=== PATIENT | female | born 2000 | race Caucasian/White ===

== ENCOUNTER → 2021-02-16 10:56 | Outpatient (BNVA) | payer MEDICAID, SELFPAY | PROVIDERS: Family Provider Family Medicine; PCP Family Medicine; Visit Provider Nurse Practitioner Family | DX: Z34.90 Encounter for supervision of normal pregnancy, unspecified, unspecified trimester (principal); R82.90 Unspecified abnormal findings in urine | CPT/HCPCS: 81000; 87086 ==

== ENCOUNTER → 2022-01-30 14:27 | Outpatient (BNVA) | payer MEDICAID, SELFPAY | PROVIDERS: Family Provider Family Medicine; PCP Nurse Practitioner Family; Visit Provider Nurse Practitioner Family | DX: R50.9 Fever, unspecified (principal) | CPT/HCPCS: 87400 ==

== ENCOUNTER → 2022-03-22 11:00 | Outpatient (BNVA) | payer MEDICAID, SELFPAY | PROVIDERS: Family Provider Family Medicine; PCP Nurse Practitioner Family; Visit Provider Nurse Practitioner Family | DX: R50.9 Fever, unspecified (principal); J02.9 Acute pharyngitis, unspecified; R05.9 Cough, unspecified; R52 Pain, unspecified; Z20.828 Contact with and (suspected) exposure to other viral communicable diseases; J45.909 Unspecified asthma, uncomplicated; J21.0 Acute bronchiolitis due to respiratory syncytial virus | CPT/HCPCS: 87400; 87420; 87426 ==

== ENCOUNTER 2022-08-11 05:14 | Emergency (ER) | payer MEDICAID, SELFPAY ==
[2022-08-11 05:20] VITALS: BP 129/88; PULSE 99; RESP 18; TEMP 36.6; O2SAT 100; BMI 29.2
[2022-08-11 05:33] VITALS: BP 129/88; PULSE 62; RESP 18; O2SAT 100
[2022-08-11 05:41] LABS: Basophils % 0.3 %; Eosinophils # 0.2 10^3/uL (0.0-0.8); Hematocrit 29.4 % (37.0-47.0); Lymphocytes # 2.5 10^3/uL (0.8-4.8); Lymphocytes % 25.3 %; Mean Corpuscular HGB Conc 27.2 g/dL (30.0-36.0); Mean Corpuscular Hemoglobin 23.5 pg (28.0-34.0); Mean Corpuscular Volume 86.5 fl (81-99); Mean Platelet Volume 9.2 fL (7.4-10.4); Monocytes # 0.5 10^3/uL (0.2-0.9); Monocytes % 4.9 %; Neutrophils # 6.54 10^3/uL (1.8-7.7); Neutrophils % 66.4 %; Nucleated Red Blood Cells % 0.2 %; Platelet Count 298 10^3/cmm (130-400); Red Cell Distribution Width 19.9 % (12.1-15.1); White Blood Count 9.9 10^3/uL (4.0-10.0)
[2022-08-11] MEDS: FUROsemide 10 mg/mL SDV 2mL 20 MG IVP (05:50)
--- NOTE | 2022-08-11 06:00 | W.ED.EXTPRO ---
HPI - Extremity Problem General: Chief complaint: Extremity Problem,Nontraumatic Stated complaint: 08/03 swelling in both legs Time Seen by Provider: 08/11/22 05:18 Source: patient Mode of arrival: ambulatory History of Present Illness: 22-year-old female presents emergency room with complaint of swelling of the lower extremities bilaterally. She is complaining of some shortness of breath as well. Previous she had preeclampsia she had no difficulty with this particular she has not had any fever sweats chills productive cough no chest pain. She still has some mild uterine cramping no complications from the . Complaint: extremity swelling Onset (ago): day(s) Location: lower extremity (Bilateral) Relieving factors: nothing Exacerbating factors: other Associated symptoms: Deny chest pain, fever(s) or rash Context: recent surgery/procedure Review of Systems Const: Denies: fever(s), chills, body aches, change in appetite, fatigue or malaise ENMT: Denies: throat pain, ear or mastoid pain, nasal discharge or nasal congestion Card: Denies: chest pain, edema, dyspnea on exertion or orthopnea Resp: Denies: dyspnea, productive cough or non-productive cough GI: Denies: abdominal pain, nausea, vomiting, hematemesis, coffee ground emesis, diarrhea, constipation, bloating, hematochezia or melena : Denies: flank pain, difficulty voiding, dysuria, urinary frequency or urinary urgency Skin/Breast: Denies: rash or pruritus PFSH ED PFSH: Social History Smoking and tobacco status: never smoked Alcohol intake: never Substance/Drug Use: never Physical Exam Const: COMMON NORMALS: no acute distress GENERAL APPEARANCE: cooperative and comfortable ORIENTATION/CONSCIOUSNESS: Yes awake, Yes oriented to person, Yes oriented to place and Yes oriented to time HENMT: COMMON NORMALS: normocephalic, atraumatic and hearing grossly normal bilaterally HEAD & SCALP: normocephalic and atraumatic Resp: COMMON NORMALS: normal respiratory effort, No retractions, No use of accessory muscles and clear to auscultation bilaterally AUSCULTATION: clear to auscultation bilaterally Cardio: COMMON NORMALS: regular rate, regular rhythm and No murmurs present (Cardio) RATE: regular rate RHYTHM: regular rhythm GI: COMMON NORMALS: Soft to palpation and No hepatosplenomegaly present AUSCULTATION: Yes normoactive bowel sounds PALPATION: Yes Soft to palpation, No Tenderness to palpation present (GI), No Guarding due to palpation present (GI) and Yes No hepatosplenomegaly present Extremity: COMMON NORMALS: normal to inspection, capillary refill normal and no calf tenderness GENERAL: Yes edema (Bilateral nonpitting) Neuro: SENSORIUM/ORIENTATION: Yes oriented to person, Yes oriented to place and Yes oriented to time Skin: COMMON NORMALS: no rashes or lesions noted GENERAL SKIN EXAM: no rashes or lesions noted Course Vital Signs: Vital signs: Vital Signs Temperature 98 F 08/11/22 05:20 Pulse Rate 62 08/11/22 05:33 Respiratory Rate 18 08/11/22 05:33 Blood Pressure 129/88 08/11/22 05:33 Pulse Oximetry 100 08/11/22 05:33 Oxygen Delivery Me thod Room Air 08/11/22 05:33 MDM - Extremity (Nontraumatic) Medical Decision Making No significant findings on exam. Laboratory test reviewed blood pressure stable she is not tachycardic or hypotensive nor is she hypoxic is no sign of DVT. Patient given Lasix in the emergency room discharged home Lasix daily for 3 days follow-up with primary care return if has further problems. Medical Records I reviewed the patient's medical records. Lab Data I reviewed the patient's lab results. 08/11/22 05:35 08/11/22 05:35 Laboratory Results WBC 9.9 10^3/uL (4.0-10.0) 08/11/22 05:35 RBC 3.40 10^6/uL (4.1-5.3) L 08/11/22 05:35 Hgb 8.0 g/dL (11.5-15.3) L 08/11/22 05:35 Hct 29.4 % (37.0-47.0) L 08/11/22 05:35 MCV 86.5 fl (81-99) 08/11/22 05:35 MCH 23.5 pg (28.0-34.0) L 08/11/22 05:35 MCHC 27.2 g/dL (30.0-36.0) L 08/11/22 05:35 RDW 19.9 % (12.1-15.1) H 08/11/22 05:35 Plt Count 298 10^3/cmm (130-400) 08/11/22 05:35 MPV 9.2 fL (7.4-10.4) 08/11/22 05:35 Neut % (Auto) 66.4 % 08/11/22 05:35 Lymph % (Auto) 25.3 % 08/11/22 05:35 Cass % (Auto) 4.9 % 08/11/22 05:35 Eos % (Auto) 2.0 % 08/11/22 05:35 Baso % (Auto) 0.3 % 08/11/22 05:35 Neut # (Auto) 6.54 10^3/uL (1.8-7.7) 08/11/22 05:35 Lymph # (Auto) 2.5 10^3/uL (0.8-4.8) 08/11/22 05:35 Cass # (Auto) 0.5 10^3/uL (0.2-0.9) 08/11/22 05:35 Eos # (Auto) 0.2 10^3/uL (0.0-0.8) 08/11/22 05:35 Baso # (Auto) 0.0 10^3/uL (0.0-0.1) 08/11/22 05:35 Nucleated RBC % (auto) 0.2 % 08/11/22 05:35 Nucleated RBCs # 0.0 /100WBC 08/11/22 05:35 Sodium 143 mmol/L (136-145) 08/11/22 05:35 Potassium 4.1 mmol/L (3.5-5.1) 08/11/22 05:35 Chloride 109 mmol/L (98-107) H 08/11/22 05:35 Carbon Dioxide 24 mmol/L (22-29) 08/11/22 05:35 Anion Gap 14.1 (5-19) 08/11/22 05:35 BUN 12 mg/dL (6-20) 08/11/22 05:35 Creatinine 0.5 mg/dL (0.5-0.9) 08/11/22 05:35 GFR Calculation 154.3 mL/min (90-130) H 08/11/22 05:35 Glucose 91 mg/dL (65-115) 08/11/22 05:35 Calculated Osmolality 295 mOsm/kg (285-295) 08/11/22 05:35 Calcium 8.3 mg/dL (8.5-10.5) L 08/11/22 05:35 Discharge Plan Discharge Patient Disposition: Home Clinical Impression: Lower extremity edema Condition: Stable Prescriptions: New Lasix 20 mg tablet 20 mg PO DAILY Qty: 3 0RF No Action azithromycin 250 mg tablet See Rx Instructions PO .COMPLEX Qty: 6 0RF Rx Instructions: For 250 mg dose pack: take 500 mg today (day 1), then 250 mg for 4 days (days 2-5) PO prednisone 20 mg tablet 40 mg PO DAILY 5 Days Qty: 10 0RF benzonatate 200 mg capsule 200 mg PO TID PRN (Reason: cough) Qty: 30 0RF albuterol sulfate 90 mcg/actuation HFA aerosol inhaler 2 puff inhalation Q4H PRN (Reason: shortness of breath or wheezing) Qty: 8.5 1RF Discharge Orders: Discharge ED (Routine); Ordered 08/11/22 Ordered By: Gilberto Joy Referrals: Linda De Leon NP [Primary Care Provider] - Discharge Activity: Increase activity as tolerated Patient Instructions: Opioid Safety, Pain Management Activity Restrictions/Additional Instructions: Take Lasix 1 tablet daily for the next 3 days begin tomorrow. If you have worsening or changing symptoms recheck with your primary care doctor. Coding Level of Care Code ED [employer] Security Manager for Carlos Maxwell
[2022-08-11 06:01] LABS: Anion Gap 14.1 (5-19); Blood Urea Nitrogen 12 mg/dL (6-20); Calcium 8.3 mg/dL (8.5-10.5); Carbon Dioxide 24 mmol/L (22-29); Chloride 109 mmol/L (98-107); Creatinine Clr Calc Pharmacy 164.6313; Glomerular Filtration Rate 154.3 mL/min (90-130); Glucose 91 mg/dL (65-115); Osmolality Calculated 295 mOsm/kg (285-295); Potassium 4.1 mmol/L (3.5-5.1); Sodium 143 mmol/L (136-145)
== END 2022-08-11 06:34 | disposition home or self-care (01) ==
PROVIDERS: Emergency Provider Family Medicine; PCP Nurse Practitioner Family
DX: O99.893 Other specified diseases and conditions complicating puerperium (principal); R60.0 Localized edema; R06.02 Shortness of breath
CPT/HCPCS: 36415; 80048; 85025; 96374; 99284; J1940